=== PATIENT | female | born 1945 | race Caucasian/White ===

== ENCOUNTER 2018-10-25 03:42 | Emergency (ER) | payer MEDICAID, OTHER ==
[~2018-10-25] VITALS: Ht 160 cm; Wt 74.0 kg
[2018-10-25] MEDS ORDERED: HYDROCODONE/ACETAMINOPHEN 5/325MG TABLET PO STA (05:03)
[2018-10-25] MEDS ORDERED: ACETAMINOPHEN 325MG TABLET PO STA (07:29)
[2018-10-25 08:31] VITALS: BP 117/66
== END 2018-10-25 08:30 | disposition home or self-care (01) ==
LOC: ER 03:42
DX: S52.512A Displaced fracture of left radial styloid process, initial encounter for closed fracture (principal); S52.612A Displaced fracture of left ulna styloid process, initial encounter for closed fracture; I10 Essential (primary) hypertension; W01.0XXA Fall on same level from slipping, tripping and stumbling without subsequent striking against object, initial encounter; Y93.89 Activity, other specified; Y92.89 Other specified places as the place of occurrence of the external cause; Y99.8 Other external cause status
CPT/HCPCS: 29125; 73110; 99283